=== PATIENT | male | born 1970 | race Two or more races ===

== ENCOUNTER 2018-09-21 18:24 | Emergency (ER) | payer SELFPAY ==
[2018-09-21 18:41] VITALS: TEMP 99.3; BMI 28.8
--- NOTE | 2018-09-21 18:42 | PDOC ---
Rapid Medical Evaluation Chief Complaint: Blood Pressure Problem Time Seen by Provider: 09/21/18 18:34 Medical Evaluation: 09/21/18 18:37 I have performed a brief in-person evaluation of this patient. The patient presents with a chief complaint of: dizziness/ and blood pressure high- saw at home 219/114 at home, is slow to respond and sister reports is not normal mental status since his arrival Friday from [facility] Pertinent physical exam findings: pateint quiet, able to answer questions but appears I have ordered the following: EKG The patient will proceed to the ED for further evaluation, and able to get Bed in ER- room Hallway 12. therefore will have ER 09/21/18 18:38 09/21/18 18:43 09/21/18 18:44 Discharge Disposition - Diagnosis Hypertension - Referrals - Patient Instructions - Post Discharge Activity
[2018-09-21] MEDS ORDERED: HYDROCHLOROTHIAZIDE 25 MG TABLET (FP) PO ONE (19:09)
[2018-09-21] MEDS ORDERED: cloNIDine HCL 0.1 MG TABLET PO ONE (19:09)
--- NOTE | 2018-09-21 19:19 | PDOC ---
History of Present Illness - General History Source: Patient Exam Limitations: No Limitations - History of Present Illness Initial Comments: 09/21/18 20:17 The patient is a 47 year old male, with a significant past medical history of hypertension (noncompliant with medications for 3 weeks), who presents to the emergency department with, elevated blood pressure. As per patients family member at bedside, he has been complaining of dizziness today and upon testing his blood pressure she notes it was elevated. The patient recently immigrated from the [place] and has been noncompliant with her unknown blood pressure medications for the past 3 weeks for unknown reasons. He denies any recent fevers, chills, or headache. He denies any recent nausea, vomit, diarrhea or constipation. He denies any recent chest pain or shortness of breath. He denies any recent dysuria, frequency, urgency or hematuria. Allergies: NKDA <Len Steward - Last Filed: 09/21/18 20:17> <Ludivina Forrest - Last Filed: 09/21/18 23:56> - General Chief Complaint: Blood Pressure Problem Stated Complaint: Blood Pressure Problem Time Seen by Provider: 09/21/18 18:34 Past History <Len Steward - Last Filed: 09/21/18 20:17> - Suicide/Smoking/Psychosocial Hx Smoking History: Never smoked <Ludivina Forrest - Last Filed: 09/21/18 23:56> - Past Medical History Allergies/Adverse Reactions: Allergies Allergy/AdvReac Type Severity Reaction Status Date / Time No Known Allergies Allergy Verified 09/21/18 18:36 Home Medications: Ambulatory Orders Hydrochlorothiazide [Hctz -] 12.5 mg PO DAILY #30 cap 09/21/18 Nifedipine [Nifedipine ER] 60 mg PO BID #60 tablet.er MDD 2 tabs 09/21/18 Review of Systems - Review of Systems Able to Perform ROS?: Yes Comments:: 09/21/18 20:18 CONSTITUTIONAL: Present: Elevated blood pressure. Absent: fever, no chills, no fatigue EYES: Absent: visual changes ENT: Absent: ear pain, no sore throat CARDIOVASCULAR: Absent: chest pain, no palpitations RESPIRATORY: Absent: cough, no SOB GI: Absent: abdominal pain, no nausea, no vomiting, no constipation, no diarrhea GENITOURINARY: Absent: dysuria, no frequency, no hematuria MUSKULOSKELETAL: Absent: back pain, no arthralgia, no myalgia SKIN: Absent: rash NEURO: Present: Headache. Dizziness. All Other Systems: Reviewed and Negative <Len Steward - Last Filed: 09/21/18 20:17> *Physical Exam - Vital Signs Last Vital Signs Temp Pulse Resp BP Pulse Ox 99.3 F 74 20 222/112 H 98 09/21/18 18:37 09/21/18 18:37 09/21/18 18:37 09/21/18 18:37 09/21/18 18:37 - Physical Exam Comments: 09/21/18 20:19 GENERAL: Well developed, well nourished. Awake and alert. No acute distress. HEENT: Normocephalic, atraumatic. PERRLA, EOMI. No conjunctival pallor. Sclera are non- icteric. Moist mucous membranes. Oropharynx is clear. NECK: Supple. Full ROM. No JVD. Carotid pulses 2+ and symmetric, without bruits. No thyromegaly. No lymphadenopathy. CARDIOVASCULAR: Regular rate and rhythm. No murmurs, rubs, or gallops. Distal pulses are 2+ and symmetric. PULMONARY: No evidence of respiratory distress. Lungs clear to auscultation bilaterally. No wheezing, rales or rhonchi. ABDOMINAL: Soft. Non-tender. Non-distended. No rebound or guarding. No organomegaly. Normoactive bowel sounds. MUSCULOSKELETAL Normal range of motion at all joints. No bony deformities or tenderness. No CVA tenderness. EXTREMITIES: No cyanosis. No clubbing. No edema. No calf tenderness. SKIN: Warm and dry. Normal capillary refill. No rashes. No jaundice. NEUROLOGICAL: Alert, awake, appropriate. Cranial nerves 2-12 intact. No deficits to light touch and temperature in face, upper extremities and lower extremities. No motor deficits in the in face, upper extremities and lower extremities. No pronator drift. Normoreflexic in the upper and lower extremities. Normal speech. Toes are down-going bilaterally. Gait is normal without ataxia. PSYCHIATRIC: Cooperative. Good eye contact. Appropriate mood and affect. <Len Steward - Last Filed: 09/21/18 20:17> - Vital Signs Last Vital Signs Temp Pulse Resp BP Pulse Ox 99.3 F 74 20 222/112 H 98 09/21/18 18:37 09/21/18 18:37 09/21/18 18:37 09/21/18 18:37 09/21/18 18:37 <Ludivina Forrest - Last Filed: 09/21/18 23:56> ED Treatment Course - LABORATORY CBC & Chemistry Diagram: 09/21/18 19:50 09/21/18 19:50 - ADDITIONAL ORDERS Additional order review: 09/21/18 19:50 RBC 5.61 H MCV 87.5 MCHC 34.7 RDW 13.9 MPV 8.2 Neutrophils % 71.1 Lymphocytes % 19.3 Monocytes % 8.8 Eosinophils % 0.5 Basophils % 0.3 - Medications Given in the ED: ED Medications Discontinued Medications Generic Name Dose Route Start Last Admin Trade Name Freq PRN Reason Stop Dose Admin Clonidine 0.1 mg 09/21/18 19:09 09/21/18 19:42 Catapres - PO 09/21/18 19:10 0.1 mg ONCE ONE Administration Hydrochlorothiazide 25 mg 09/21/18 19:09 09/21/18 19:42 Hctz - PO 09/21/18 19:10 25 mg ONCE ONE Administration <Len Steward - Last Filed: 09/21/18 20:17> - LABORATORY CBC & Chemistry Diagram: 09/21/18 19:50 09/21/18 19:50 - RADIOLOGY Radiology Studies Ordered: Category Date Time Status HEAD CT WITHOUT CONTRAST [CT] Stat CT Scan 09/21/18 19:13 Ordered CHEST PA & LAT [RAD] Stat Radiology 09/21/18 19:13 Ordered <Ludivina Forrest - Last Filed: 09/21/18 23:56> Medical Decision Making - Medical Decision Making 09/21/18 21:43 47-year-old me with a long history of hypertension and noncomplinace of meds has c/o dizziness and elevated BP 09/21/18 21:45 cAT scan of the head negative for any acute intracranial pathology cxr napd cbc wnl chemistries , sl elevated glu otherwise unremarkable labs neg trop 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 <Len Steward - Last Filed: 09/21/18 20:17> <Ludivina Forrest - Last Filed: 09/21/18 23:56> Diagnosis at time of Disposition: Hypertension Qualifiers: Hypertension type: essential hypertension Qualified Code(s): I10 - Essential ( primary) hypertension - Discharge Dispostion Disposition: HOME Condition at time of disposition: Improved - Prescriptions Prescriptions: Hydrochlorothiazide [Hctz -] 12.5 mg PO DAILY #30 cap Nifedipine [Nifedipine ER] 60 mg PO BID #60 tablet.er MDD 2 tabs - Patient Instructions Printed Discharge Instructions: DI for High Blood Pressure Additional Instructions: PLEASE TAKE THESE PRESCRIPTIONS TO THE PHARMACY OF YOUR CHOICE AND TAKE THE MEDICATIONS WRITTEN RETURN FOR ANY WORSENING SYMPTOMS
[2018-09-21] MEDS ORDERED: HYDROCHLOROTHIAZIDE 25 MG TABLET (FP) ONE (19:24)
[2018-09-21] MEDS ORDERED: cloNIDine HCL 0.1 MG TABLET ONE (19:24)
[2018-09-21 19:58] LABS: BASO % 0.3 % (0-2.0); EOS % 0.5 % (0-4.5); HEMATOCRIT 49.1 % (35.4-49); LYMPH % 19.3 % (8-40); MCH 30.4 pg (25.7-33.7); MCHC 34.7 g/dl (32.0-35.9); MEAN CELL VOLUME 87.5 fl (80-96); MEAN PLT VOLUME 8.2 fl (7.5-11.1); MONO % 8.8 % (3.8-10.2); NEUT % 71.1 % (42.8-82.8); PLATELET COUNT 231 K/MM3 (134-434); RBC 5.61 M/mm3 (4.00-5.60); RDW 13.9 % (11.9-15.9); WHITE BLOOD COUNT 6.5 K/mm3 (4.0-10.0)
[2018-09-21 20:36] LABS: INR 1.05 (0.83-1.09); PROTHROMBIN TIME (PATIENT) 12.4 SEC (9.7-13.0)
[2018-09-21 20:47] LABS: ALBUMIN 4.1 g/dl (3.4-5.0); ALK PHOS 71 U/L (45-117); ANION GAP 9 MMOL/L (8-16); BILIRUBIN,TOTAL 0.4 mg/dL (0.2-1); BLOOD UREA NITROGEN 17 mg/dL (7-18); CHLORIDE 105 mmol/L (98-107); CO2 31 mmol/L (21-32); CREATININE 1.3 mg/dL (0.55-1.3); GLUCOSE,RANDOM 108 mg/dL (74-106); POTASSIUM 3.9 mmol/L (3.5-5.1); SGOT/AST 20 U/L (15-37); SGPT/ALT 40 U/L (13-61); SODIUM 145 mmol/L (136-145)
[2018-09-21 21:45] LABS: URINE APPEARANCE CLEAR; URINE BILIRUBIN NEGATIVE (<2.0 mg/dL); URINE COLOR LTYELLOW; URINE GLUCOSE (UA) NEGATIVE (NEGATIVE); URINE KETONE NEGATIVE (NEGATIVE); URINE LEUK ESTERASE NEGATIVE (NEGATIVE); URINE NITRITE NEGATIVE (NEGATIVE); URINE PROTEIN NEGATIVE (NEGATIVE); URINE UROBILINOGEN NEGATIVE mg/dL (0.2-1.0)
[2018-09-21 21:54] LABS: URINE MUCUS RARE
[2018-09-21] MEDS ORDERED: METOPROLOL TARTRATE 5 MG/5 ML VIAL IVPUSH ONE (22:25)
[2018-09-21] MEDS ORDERED: METOPROLOL TARTRATE 5 MG/5 ML VIAL ONE (22:34)
[2018-09-22 00:11] VITALS: BP 186/74; PULSE 76
--- NOTE | 2018-09-22 12:09 | EKG ---
Test Reason : Blood Pressure : / mmHG Vent. Rate : 070 BPM Atrial Rate : 070 BPM P-R Int : 160 ms QRS Dur : 098 ms QT Int : 374 ms P-R-T Axes : 052 -75 005 degrees QTc Int : 403 ms NORMAL SINUS RHYTHM POSSIBLE LEFT ATRIAL ENLARGEMENT LEFT AXIS DEVIATION INCOMPLETE RIGHT BUNDLE BRANCH BLOCK INFERIOR INFARCT , AGE UNDETERMINED ABNORMAL ECG NO PREVIOUS ECGS AVAILABLE Confirmed by MD ANNABELLA, LENORA ([id number]) on 09/22/2018 12:08:44 PM Referred By: Confirmed By:LENORA WINCHESTER MD
== END 2018-09-22 00:11 | disposition home or self-care (01) ==
LOC: JER 18:24
PROC: 3E033GC Introduction of Other Therapeutic Substance into Peripheral Vein, Percutaneous Approach (ICD-10-PCS; principal; 2018-09-21)
DX: I10 Essential (primary) hypertension (principal); Z91.14 Patient's other noncompliance with medication regimen
CPT/HCPCS: 36415; 70450-TC; 71046-TC-FY; 80053; 81003; 81015; 82550; 82553; 84484; 85025; 85610; 93005; 93010; 99282-25; J0735